=== PATIENT | female | born 1990 | race Caucasian/White ===

== ENCOUNTER 2016-10-29 12:51 | Emergency (ER) | payer MEDICAID, OTHER ==
[~2016-10-29] VITALS: Ht 165.1 cm; Wt 64.0 kg
[~2016-10-29 12:51] MED LIST: Z.0.NO CURRENT MEDS
[2016-10-29 12:54] VITALS: BP 124/81; PULSE 78; RESP 20; TEMP 98.1; O2SAT 99
[2016-10-29] MEDS ORDERED: SODIUM CHLOR 0.9% 1000 ML INJ 1,000 ML IV SCH (13:09)
[2016-10-29 13:15] VITALS: BP_SYST 107; BP_SYST 121; BP_SYST 123; BP_DIAS 67; BP_DIAS 82; RESP 16
--- NOTE | 2016-10-29 13:26 | PD ---
HPI Chief Complaint: Head Injury Time Seen by Provider: 13:21 Travel History International Travel<30 days: No Contact w/Intl Traveler<30days: No Traveled to known affect area: No History of Present Illness HPI 26-year-old female that presents to the ED for evaluation of head injury and presents syncope. Per patient she suffered a head injury on Sunday night. Per patient she was "roughing around" with her friends. Per patient this is normal for her and she remembers that she did fell and hit her head. Per patient she was able to get herself back up and continue "roughing around ". Per patient he wasn't until they stopped doing this that she noted that she had some pain in her head which she didn't think much of it as she had just hit her head and for the most part the pain went away after she went to sleep. Per patient she' s had for about 12 hours and she will call feeling somewhat "weird." Per patient she felt like something was off. Per patient she went to work and during work she started feeling lightheaded. Per patient she had an episode at the end of the day where she was cutting the hair of the dog when she felt that she was given a fall and could not stop herself. She was actually able to stop herself but she doesn't really think that she lost consciousness. She states that she did not lose consciousness or have any blurry vision or double vision. Per patient her work won't let her see her until she gets checked. Patient went to an urgent care today and she was told by the urgent care doctor to come here to get evaluated for the dizziness and lightheadedness. She denies taking any blood thinners. She denies . No history of anemia. She's never had anything like this before but she is somewhat concerned because her sister was recently from a brain tumor. She has no history of cancer on herself. No allergies to medication. No other medical issues. She has no pain but she does state that she gets somewhat lightheaded when she stands up and only when she stands up but not all the time. PFSH Past Medical History Cardiovascular Problems: Yes (HEART MURMUR) Diminished Hearing: No Tetanus Vaccination: > 5 Years ?: Not LMP: 09/29/16 Social History Alcohol Use: Yes (OCASSIONALLY) Tobacco Use: Yes (OCASSIONALLY) Allergies-Medications (Allergen,Severity, Reaction): Coded Allergies: No Known Allergies (Verified , 10/29/16) Reported Meds & Prescriptions Reported Meds & Active Scripts Active No Active Prescriptions or Reported Medications Review of Systems Except as stated in HPI: all other systems reviewed are Neg Physical Exam Narrative GENERAL: SKIN: Warm and dry. HEAD: Atraumatic. Normocephalic. EYES: Pupils equal and round 4 mm reactive to light and accommodation. No scleral icterus. No injection or drainage. ENT: No nasal bleeding or discharge. Mucous membranes pink and moist. Tongue is midline. No uvula deviation. NECK: Trachea midline. No JVD. CARDIOVASCULAR: Regular rate and rhythm. No murmurs, S3, S4. RESPIRATORY: No accessory muscle use. Clear to auscultation. Breath sounds equal bilaterally. GASTROINTESTINAL: Abdomen soft, non-tender, nondistended. Hepatic and splenic margins not palpable. MUSCULOSKELETAL: Extremities without clubbing, cyanosis, or edema. No obvious deformities. Full range of motion of the upper and lower extremities bilaterally with no pain. Ambulatory with no sign of ambulatory issues. No lumbar, thoracic, cervical spine tenderness to palpation. 2+ pulses bilaterally. 5 out of 5 strength bilaterally and sensation intact. NEUROLOGICAL: Awake and alert. No obvious cranial nerve deficits. Motor grossly within normal limits. Five out of 5 muscle strength in the arms and legs. Normal speech. Romberg test negative. Pronator test negative. PSYCHIATRIC: Appropriate mood and affect; insight and judgment normal. Data Data Last Documented VS Vital Signs Date Time Temp Pulse Resp B/P Pulse Ox O2 Delivery O2 Flow Rate FiO2 10/29/16 13:15 69 16 107/67 68 16 123/67 84 16 121/82 10/29/16 13:03 99 Room Air 10/29/16 12:54 98.1 Orders Complete Blood Count With Diff (10/29/16 13:09) Basic Metabolic Panel (Bmp) (10/29/16 13:09) Urinalysis - C+S If Indicated (10/29/16 13:09) Magnesium (Mg) (10/29/16 13:09) Ct Brain W/O Iv Contrast(Rout) (10/29/16 13:09) Iv Access Insert/Monitor (10/29/16 13:09) Orthostatic Vital Signs (10/29/16 13:09) Ed Urine Pregnancytest Poc (10/29/16 13:09) Sodium Chlor 0.9% 1000 Ml Inj (Ns 1000 M (10/29/16 13:09) Urine Culture (10/29/16 11:11) Labs Laboratory Tests Test 10/29/16 11:11 White Blood Count 5.4 TH/MM3 Red Blood Count 4.22 MIL/MM3 Hemoglobin 13.1 GM/DL Hematocrit 38.1 % Mean Corpuscular Volume 90.2 FL Mean Corpuscular Hemoglobin 31.0 PG Mean Corpuscular Hemoglobin 34.4 % Concent Red Cell Distribution Width 13.3 % Platelet Count 225 TH/MM3 Mean Platelet Volume 8.6 FL Neutrophils (%) (Auto) 60.2 % Lymphocytes (%) (Auto) 29.2 % Monocytes (%) (Auto) 7.0 % Eosinophils (%) (Auto) 3.0 % Basophils (%) (Auto) 0.6 % Neutrophils # (Auto) 3.3 TH/MM3 Lymphocytes # (Auto) 1.6 TH/MM3 Monocytes # (Auto) 0.4 TH/MM3 Eosinophils # (Auto) 0.2 TH/MM3 Basophils # (Auto) 0.0 TH/MM3 CBC Comment DIFF FINAL Differential Comment Urine Color YELLOW Urine Turbidity HAZY Urine pH 6.0 Urine Specific [place] 1.023 Urine Protein 30 mg/dL Urine Glucose (UA) NEG mg/dL Urine Ketones NEG mg/dL Urine Occult Blood TRACE Urine Nitrite NEG Urine Bilirubin NEG Urine Urobilinogen LESS THAN 2.0 MG/DL Urine Leukocyte Esterase MOD Urine RBC 5 /hpf Urine WBC 14 /hpf Urine Squamous Epithelial 5 /hpf Cells Urine Bacteria FEW /hpf Urine Mucus MANY /lpf Microscopic Urinalysis Comment CULTURE INDICATED Sodium Level 141 MEQ/L Potassium Level 3.9 MEQ/L Chloride Level 109 MEQ/L Carbon Dioxide Level 26.3 MEQ/L Anion Gap 6 MEQ/L Blood Urea Nitrogen 8 MG/DL Creatinine 0.62 MG/DL Estimat Glomerular Filtration 117 ML/MIN Rate Random Glucose 93 MG/DL Calcium Level 8.8 MG/DL Magnesium Level 2.3 MG/DL MDM Medical Decision Making Medical Screen Exam Complete: Yes Emergency Medical Condition: Yes Medical Record Reviewed: Yes Interpretation(s) Last Impressions Head CT 10/29/16 1309 Signed Impressions: Service Date/Time: Saturday, October 29, 2016 14:10 - CONCLUSION: Normal examination. Jonathan Huddleston MD CBC & BMP Diagram 10/29/16 11:11 UA shows UTI Differential Diagnosis Head injury versus traumatic head injury versus concussion versus presyncope versus anemia versus brain bleed Narrative Course 26-year-old female that presents to the ED for evaluation of head injury. Patient was properly examined and was found to have signs and symptoms consistent with head injury. At this time her, labs and imaging to make sure patient does not have any other acute disease. She is still symptomatic feeling lightheaded when she stands. Orthostatics will be done as well. Her neurological exam here is benign. Labs and imaging here showed UTI but otherwise unremarkable. Patient was reassured. From history and physical this appears to be concussion with UTI. Orthostatics are normal. Patient's is symptomatic at this time. Symptoms are only with range of motion of the head as well as with standing. Patient will be given a prescription for Bactrim. Patient was given note for work. Follow with PCP. See ED worsening symptoms. Drink plenty of fluids. Diagnosis Primary Impression: Head injury, acute Qualified Code: S09.90XA - Head injury, acute, initial encounter Additional Impression: UTI (urinary tract infection) Qualified Code: N30.01 - Acute cystitis with hematuria Patient Instructions: General Instructions Departure Forms: Tests/Procedures, Work Release Enter return to work date: November 01, 2016 Special Instructions: Patient is okay to work. Patient suffered a concussion on Sunday and she'll be safe to work now. If possible a her to sit more than stand for at least 2 weeks. Additional Instructions: Take medication as prescribed. Follow with PCP. See ED worsening symptoms. Drink plenty of fluids. Med/Other Pt SpecificInfo: Prescription(s) given Scripts Sulfamethoxazole-Trimethoprim (Bactrim DS)800-160 Mg Tab1 Tab PO BID 7 Days Prov:Maksim Arboleda MD 10/29/16 Disposition: 01 DISCHARGE HOME Condition: Stable Galileo Melgoza October 29, 2016 13:26
[2016-10-29 13:40] LABS: AUTOMATED NEUTROPHIL # 3.3 TH/MM3 (1.8-7.7); BASOPHIL % 0.6 % (0.0-2.0); EOSINOPHIL # 0.2 TH/MM3 (0-0.4); HEMATOCRIT 38.1 % (35.0-46.0); HEMO FLAGS DIFF FINAL; LYMPH % 29.2 % (9.0-44.0); LYMPHOCYTE # 1.6 TH/MM3 (1.0-4.8); MEAN CELL VOLUME 90.2 FL (80.0-100.0); MEAN CORPUSCULAR HGB CONC 34.4 % (32.0-36.0); NEUT % 60.2 % (16.0-70.0); PLATELET COUNT 225 TH/MM3 (150-450); RED BLOOD COUNT 4.22 MIL/MM3 (4.00-5.30); RED CELL DISTRIBUTION WIDTH 13.3 % (11.6-17.2); WHITE BLOOD COUNT 5.4 TH/MM3 (4.0-11.0)
[2016-10-29 13:45] LABS: BACTERIA, URINE FEW /hpf; BLOOD, URINE TRACE (NEG); COMMENT (UR) CULTURE INDICATED; CULTURE IF INDICATED CULTURE INDICATED; GLUCOSE,URINE NEG (NEG); KETONE, URINE NEG (NEG); MUCUS URINE MANY /lpf (OCC); NITRITE,URINE NEG (NEG); SQUAMOUS EPITHELIAL CELL URINE 5 /hpf (0-5); URINE COLOR YELLOW (YELLW/STRAW)
[2016-10-29 14:00] LABS: BICARBONATE 26.3 MEQ/L (21.0-32.0); MAGNESIUM 2.3 MG/DL (1.5-2.5); POTASSIUM 3.9 MEQ/L (3.5-5.1)
--- NOTE | 2016-10-29 14:16 | RADRPT ---
EXAM DATE/TIME: 10/29/2016 14:10 [facility] COMPARISON: No previous studies available for comparison. INDICATIONS : Cephalgia. RADIATION DOSE: 56.35 CTDIvol (mGy) MEDICAL HISTORY : Cardiovascular disease. SURGICAL HISTORY : Back. ENCOUNTER: Initial ACUITY: 1 day PAIN SCALE: 3/10 LOCATION: cranial TECHNIQUE: Multiple contiguous axial images were obtained of the head. Using automated exposure control and adj ustment of the mA and/or kV according to patient size, radiation dose was kept as low as reasonably a chievable to obtain optimal diagnostic quality images. FINDINGS: CEREBRUM: The ventricles are normal for age. No evidence of midline shift, mass lesion, hemorrhage or acute in farction. No extra-axial fluid collections are seen. POSTERIOR FOSSA: The cerebellum and brainstem are intact. The 4th ventricle is midline. The cerebellopontine angle i s unremarkable. EXTRACRANIAL: The visualized portion of the orbits is intact. SKULL: The calvaria is intact. No evidence of skull fracture. CONCLUSION: Normal examination. Jonathan Huddleston MD on October 29, 2016 at 14:14 Board Certified Radiologist. This report was verified electronically.
[2016-10-29] MEDS ORDERED: BACT800T5 PO (14:38)
[2016-10-29 14:43] VITALS: BP 122/77; TEMP 97.8
== END 2016-10-29 14:43 | disposition home or self-care (01) ==
LOC: NEPD 12:51
DX: S09.90XA Unspecified injury of head, initial encounter (principal); N30.01 Acute cystitis with hematuria; Z72.0 Tobacco use; Z86.79 Personal history of other diseases of the circulatory system; W19.XXXA Unspecified fall, initial encounter; W22.8XXA Striking against or struck by other objects, initial encounter; Y93.83 Activity, rough housing and horseplay
CPT/HCPCS: 70450; 80048; 81001; 83735; 84703; 85025; 87086; 96360; 99284; J7030